=== PATIENT | female | born 1960 | race Hispanic/Latino ===

== ENCOUNTER 2019-10-18 20:08 | Emergency (ER) | payer SELFPAY ==
[~2019-10-18] VITALS: Ht 152.4 cm; Wt 54.4 kg
[2019-10-18] MEDS ORDERED: ASPIRIN 81 MG CHEW TAB PO STA (21:12)
[2019-10-18] MEDS ORDERED: NITROGLYCERIN 2% OINT 1 GM PKT TOP ONE (21:15)
[2019-10-18] MEDS ORDERED: ASPIRIN 81 MG CHEW TAB ONE (21:25)
[2019-10-18] MEDS ORDERED: NITROGLYCERIN 2% OINT 1 GM PKT ONE (21:25)
[2019-10-18] MEDS ORDERED: FAMOTIDINE 20 MG TAB PO SCH (21:45)
[2019-10-18] MEDS ORDERED: ASPIRIN 81 MG CHEW TAB PO ONE (21:45)
[2019-10-18] MEDS ORDERED: SODIUM CHLORIDE FLUSH 10 ML SYR INJ PRN (21:45)
--- NOTE | 2019-10-18 22:15 | Diagnostic Imaging Report ---
EXAMINATION: CXR 2 VIEW - HOPD INDICATION: Chest pain COMPARISON: None FINDINGS: TUBES and LINES: None. LUNGS: Normal lung volumes. Lungs are clear. No consolidations. PLEURA: No pleural effusion or pneumothorax. HEART AND MEDIASTINUM: The cardiomediastinal silhouette is unremarkable. BONES AND SOFT TISSUES: No acute osseous lesion. Soft tissues are unremarkable. UPPER ABDOMEN: No free air under the diaphragm. IMPRESSION: No acute thoracic radiographic abnormality. Signed by: Eulogio Conteh DO on 10/18/2019 10:12 PM
--- NOTE | 2019-10-18 22:26 | NUR ---
CALLED [facility] FOR PT TRANSPORT TO [facility] RM [phone]
--- NOTE | 2019-10-18 23:55 | NUR ---
CALLED EMS BACK TO VERIFY TIME OF ARRIVAL. APPROX. 9MINS ETA
[2019-10-19] MEDS ORDERED: NITROGLYCERIN 2% OINT 1 GM PKT TOP SCH
--- NOTE | 2019-10-19 00:16 | NUR ---
ON EMS ARRIVAL PT REFUSED ADMIT. INFORMED. AOS INFORMED
[2019-10-19 00:27] VITALS: BP 144/80
--- NOTE | 2019-10-19 00:27 | NUR ---
PT SIGNED OUT AMA
[2019-10-19] MEDS ORDERED: ASPIRIN 81 MG ENTERIC COATED PO SCH (09:00)
== END 2019-10-19 00:27 | disposition left against medical advice (07) ==
LOC: FSED 20:08 → UNDOADMOB 21:48 → ERHOLD 21:48 → FSED 10-19 00:27
DX: R07.89 Other chest pain (principal); Z88.0 Allergy status to penicillin
CPT/HCPCS: 71046; 80048; 80076; 82553; 84484; 85025; 93005; 99284

== ENCOUNTER 2021-06-10 10:08 | Emergency (ER) | payer OTHER ==
[~2021-06-10] VITALS: Ht 149.9 cm; Wt 56.7 kg
[2021-06-10] MEDS ORDERED: SODIUM CHLORIDE 0.9% 1000ML 1,000 ML IV STA (10:11)
[2021-06-10] MEDS ORDERED: DICYCLOMINE HCL 20 MG/2 ML VIAL IM ONE (10:15)
[2021-06-10 10:31] LABS: BASOPHILS # (AUTO) 0.1 (0.0-0.1); BASOPHILS % 0.8 % (0.0-1.0); EOSINOPHILS % 0.1 % (0.0-6.0); HEMATOCRIT 40.1 % (34.2-44.1); HEMOGLOBIN 13.6 g/dL (12.0-16.0); LYMPHOCYTES # (AUTO) 2.5 (1.0-3.2); LYMPHOCYTES % 33.9 % (18.0-39.1); MEAN CORPUSCULAR HEMOGLOBIN 31.9 pg (28-32); MEAN CORPUSCULAR HGB CONC 33.9 g/dL (31-35); MEAN CORPUSCULAR VOLUME 93.9 fL (81-99); MONOCYTES # (AUTO) 0.5 (0.2-0.8); MONOCYTES % 6.1 % (4.4-11.3); NEUTROPHILS # (AUTO) 4.4 (2.1-6.9); NEUTROPHILS % 58.7 % (38.7-80.0); PLATELET COUNT 300 x10e3/uL (140-360); RED BLOOD COUNT 4.27 x10e6/uL (3.6-5.1); RED CELL DISTRIBUTION WIDTH 13.2 % (11.7-14.4)
[2021-06-10 10:45] LABS: INR 0.95; PARTIAL THROMBOPLASTIN TIME 30.2 seconds (23.8-35.5); PROTHROMBIN TIME 13.4 seconds (11.9-14.5)
[2021-06-10 10:48] LABS: CLARITY,URINE CLEAR (CLEAR); COLOR,URINE YELLOW (YELLOW)
[2021-06-10 10:49] LABS: KETONES,URINE 1+ (NEGATIVE); LEUKOCYTE ESTERASE ,URINE TRACE (NEGATIVE); NITRITE,URINE NEGATIVE (NEGATIVE); PROTEIN,URINE DIPSTICK NEGATIVE (NEGATIVE); URINE UROBILINOGEN 0.2 mg/dL (0.2 - 1)
[2021-06-10 10:56] LABS: ALANINE AMINOTRANSFERASE 36 IU/L (0-55); ALBUMIN 4.1 g/dL (3.5-5.0); ALKALINE PHOSPHATASE 69 IU/L (40-150); AMYLASE 111 U/L (25-125); ANION GAP 14.2 mmol/L (8-16); BLOOD UREA NITROGEN 12 mg/dL (7-26); BUN/CREATININE RATIO 13 (6-25); CALCIUM 8.9 mg/dL (8.4-10.2); CARBON DIOXIDE 22 mmol/L (22-29); CHLORIDE 108 mmol/L (98-107); CREATINE KINASE 83 IU/L (29-168); CREATININE, SERUM 0.89 mg/dL (0.57-1.11); EST GLOMERULAR FILTRATION RATE 64 ML/MIN (60-); GLUCOSE 178 mg/dL (74-118); LIPASE 23 U/L (8-78); MAGNESIUM 2.1 MG/DL (1.3-2.1); POTASSIUM 4.2 mmol/L (3.5-5.1); SODIUM 140 mmol/L (136-145)
[2021-06-10] MEDS ORDERED: ONDANSETRON HCL INJ 2MG/ML 2ML 2 MG/ML VIAL IV ONE (11:00)
[2021-06-10 11:17] LABS: BACTERIA,URINE FEW /HPF; EPITHELIAL CELLS,URINE MANY /LPF
[2021-06-10] MEDS ORDERED: LEVOFLOXACIN 500 MG TAB PO ONE (13:00)
[2021-06-10 13:48] VITALS: BP 136/78
== END 2021-06-10 13:49 | disposition home or self-care (01) ==
LOC: ER 10:18
DX: R10.11 Right upper quadrant pain (principal); N39.0 Urinary tract infection, site not specified; R11.0 Nausea; E78.5 Hyperlipidemia, unspecified; K21.9 Gastro-esophageal reflux disease without esophagitis
CPT/HCPCS: 36415; 74176; 76705; 80053; 81001; 82150; 82550; 82553; 83690; 83735; 84484; 85025; 85610; 85730; 87086; 93005; 99284; C9113; J0500; J2405; J7030

== ENCOUNTER 2025-05-13 08:16 | Emergency (ER) | payer OTHER ==
[~2025-05-13] VITALS: Ht 152.4 cm; Wt 59.0 kg
[~2025-05-13 08:16] MED LIST: LIPITOR10 MG PO; PANTOPRAZOLE SO40 MG PO; SUCRALFATE1 GM PO
[2025-05-13 08:31] VITALS: TEMP 98.8
[2025-05-13 09:02] LABS: BASOPHILS % 0.6 % (0.0-1.0); EOSINOPHILS % 0.9 % (0.0-6.0); LYMPHOCYTES % 45.2 % (18.0-39.1); MONOCYTES % 13.0 % (4.4-11.3); NEUTROPHILS % 40.1 % (38.7-80.0); RED CELL DISTRIBUTION WIDTH 12.8 % (11.7-14.4)
[2025-05-13 09:12] LABS: LEUKOCYTE ESTERASE ,URINE NEGATIVE (NEGATIVE); PROTEIN,URINE DIPSTICK NEGATIVE (NEGATIVE); URINE UROBILINOGEN 0.2 mg/dL (0.2 - 1)
[2025-05-13] MEDS: ONDANSETRON HCL INJ 2MG/ML 2ML 2 MG/ML VIAL IV STA (09:13)
[2025-05-13] MEDS: SODIUM CHLORIDE 0.9% 1000ML 1,000 ML IV STA (09:13)
[2025-05-13 09:23] LABS: EPITHELIAL CELLS,URINE FEW /LPF; WBC,URINE (MAN) 0-5 /HPF (0-5)
[2025-05-13 09:32] LABS: EST GLOMERULAR FILTRATION RATE 79.0 ML/MIN (>=60)
[2025-05-13] MEDS ORDERED: IOPAMIDOL 370 MG/ML 100 ML INFUS..BTL INJ ONE (09:44)
[2025-05-13 09:54] LABS: INR 0.98
[2025-05-13] MEDS ORDERED: PANTOPRAZOLE SO40 MG PO (11:11)
[2025-05-13 11:27] VITALS: PULSE 58; RESP 16; O2SAT 100
== END 2025-05-13 11:31 | disposition home or self-care (01) ==
LOC: ER 08:27
DX: R10.13 Epigastric pain (principal); K29.70 Gastritis, unspecified, without bleeding; R11.0 Nausea; K21.9 Gastro-esophageal reflux disease without esophagitis; E78.5 Hyperlipidemia, unspecified; M19.09 Primary osteoarthritis, other specified site
CPT/HCPCS: 36415; 71045; 74177; 80053; 81001; 83690; 83735; 84484; 85025; 85610; 85730; 87086; 93005; 99284; J2405; J2470; J7030; Q9967